=== PATIENT | female | born 1950 | race Caucasian/White ===

== ENCOUNTER 2018-07-14 13:00 | Emergency (ER) | payer MEDICARE, OTHER ==
[~2018-07-14] VITALS: Ht 167.6 cm; Wt 88.8 kg
[~2018-07-14 13:00] MED LIST: ALPR0.5T8 PO; BUPR150T6 PO; BUSP15TA14 PO; DULO-31 PO; HYDR25TA4 PO; LIOT25TA6 PO; LISI40TA4 PO; OMEP40CA37 PO
[2018-07-14 14:57] VITALS: BP 150/64
[2018-07-14] MEDS ORDERED: apixaban 5mg tablet PO ONE (15:25)
[2018-07-14] MEDS ORDERED: APIX5TAB3 PO (15:30)
[2018-07-14 16:00] LABS: BASOPHILS % (AUTO) 0.4 % (0-1); EOSINOPHILS # (AUTO) 0.1 X10'3 (0-0.9); EOSINOPHILS % (AUTO) 2.3 % (0-6); HEMATOCRIT 27.6 % (35.0-45.0); HEMOGLOBIN 9.4 g/dl (12.0-16.0); LYMPHOCYTES # (AUTO) 1.5 X10'3 (1.1-4.8); MEAN CORPUSCULAR HEMOGLOBIN 29.5 PG (27.0-31.0); MEAN CORPUSCULAR HGB CONC 33.9 % (33.0-36.5); MEAN CORPUSCULAR VOLUME 86.9 FL (78-98); MEAN PLATELET VOLUME 6.8 FL (7.4-10.4); MONOCYTES # (AUTO) 0.6 X10'3 (0-0.9); MONOCYTES % (AUTO) 8.8 % (2-12); NEUTROPHILS # (AUTO) 4.1 X10'3 (1.8-7.7); NEUTROPHILS % (AUTO) 64.5 % (42-75); PLATELET COUNT 424 X10'3 (140-440); RED BLOOD COUNT 3.17 X10'6 (4.20-5.60); RED CELL DISTRIBUTION WIDTH 12.8 % (11.5-14.5); WHITE BLOOD COUNT 6.3 X10'3 (4.5-11.0)
== END 2018-07-14 16:27 | disposition home or self-care (01) ==
LOC: ER 13:01
DX: I82.4Z1 Acute embolism and thrombosis of unspecified deep veins of right distal lower extremity (principal); Z91.048 Other nonmedicinal substance allergy status
CPT/HCPCS: 36415; 85025; 93971; 99285

== ENCOUNTER 2021-06-17 11:15 | Emergency (ER) | payer MEDICARE, OTHER ==
[~2021-06-17] VITALS: Ht 167.6 cm; Wt 88.1 kg
[~2021-06-17 11:15] MED LIST changes: +APIX5TAB3 PO; +BUPR-317 PO; -BUPR150T6 PO; -BUSP15TA14 PO; +BUSP15TA8 PO; +LISI40TA13 PO; -LISI40TA4 PO; +OMEP40CA21 PO; -OMEP40CA37 PO
[2021-06-17 12:34] LABS: PARTIAL THROMBOPLASTIN TIME 27 SECONDS (22-32)
[2021-06-17 12:38] LABS: ALANINE AMINOTRANSFERASE 10 U/L (12-78); ALBUMIN 3.9 G/DL (3.4-5.0); ALKALINE PHOSPHATASE 105 IU/L (46-116); ANION GAP 10 (8-16); ASPARTATE AMINO TRANSFERASE 15 U/L (10-37); BILIRUBIN,TOTAL 0.4 MG/DL (0.1-1.0); BLOOD UREA NITROGEN 25 MG/DL (7-18); BUN/CREATININE RATIO 22.1 (6.6-38.0); CALCIUM 8.9 MG/DL (8.5-10.1); CHLORIDE 106 MMOL/L (99-107); CREATININE 1.13 MG/DL (0.40-0.90); GLUCOSE 106 MG/DL (70-104); POTASSIUM 3.9 MMOL/L (3.5-5.1); SODIUM 141 MMOL/L (135-145); TOTAL CARBON DIOXIDE 25.5 MMOL/L (24-32); TOTAL PROTEIN 7.7 G/DL (6.4-8.2); TROPONIN I < 0.04 NG/ML (0.0-0.05); eGFR 48 ML/MIN
--- NOTE | 2021-06-17 12:51 | NUR ---
PT'S CAME IN TO ER AND STATES PT HAS BEEN HAVING SOME UNSPECIFIED VISUAL PROBLEMS FOR "A WHILE NOW" WITH HX OF CVA
[2021-06-17] MEDS ORDERED: iohexol 350 MG/ML 50ML vial IV ONE (14:05)
[2021-06-17] MEDS ORDERED: iohexol 350MG/ML 100ml bottle IV ONE (14:06)
[2021-06-17] MEDS ORDERED: TICA90TA2 PO (14:19)
[2021-06-17] MEDS ORDERED: ATOR-2 PO (14:19)
[2021-06-17] MEDS ORDERED: ASPI-1264 PO (14:19)
[2021-06-17] MEDS ORDERED: HYDR100T27 PO (14:19)
[2021-06-17] MEDS ORDERED: LISI20TA28 PO (14:19)
[2021-06-17] MEDS ORDERED: NAPR-1166 PO (14:19)
[2021-06-17] MEDS ORDERED: aspirin 81mg tab.chew PO ONE (14:25)
--- NOTE | 2021-06-17 15:05 | NUR ---
BACK FROM CT
[2021-06-17 15:26] VITALS: BP 208/87
--- NOTE | 2021-06-17 16:17 | NUR ---
Overheard pt calling out, entered room to pt pulling off 5-lead,and getting dressed. Pt with word salad, not making sense when asked what is wrong. Gave pt paper and pen; also unable to write connecting words.
--- NOTE | 2021-06-17 16:25 | NUR ---
CALLLED PT FOR PT TO LET HIM KNOW SHE DOESNT WANT TO BE HERE. STATED HE WILL COME SOON HE CAN. DR HOLDER NOTIFIED AND SPOKE WITH PT. PT VERBALIZED UNDERSTANDING.
[2021-06-17] MEDS ORDERED: potassium Cl 20 mEq SR tablet PO PRN ×2 (16:30)
[2021-06-17] MEDS ORDERED: normal saline 1000ml 1,000 ML IV SCH (16:30)
[2021-06-17] MEDS ORDERED: bisacodyl 10mg suppository rectal RC PRN (16:30)
[2021-06-17] MEDS ORDERED: potassium Cl 40MEQ/1/2NS 520ml 520 ML IV PRN ×2 (16:30)
[2021-06-17] MEDS ORDERED: mag hydrox/Alum hydrox/simeth 30ml oral suspension PO PRN (16:30)
[2021-06-17] MEDS ORDERED: ondansetron/PF 4mg/2ml inj IV PRN (16:30)
[2021-06-17] MEDS ORDERED: magnesium 4gm in 100ml NS 100 ML IV PRN (16:30)
[2021-06-17] MEDS ORDERED: magnesium Cl slow-release 64mg tablet PO PRN (16:30)
[2021-06-17] MEDS ORDERED: morphine 2 MG/ML inj. syringe IV PRN ×2 (16:30)
[2021-06-17] MEDS ORDERED: magnesium hydroxide 30ml (MOM) UD suspension PO PRN (16:30)
[2021-06-17] MEDS ORDERED: HYDROcodone/acetaminophen 5mg/325mg tablet PO PRN (16:30)
[2021-06-17] MEDS ORDERED: diphenhydrAMINE 25mg capsule PO PRN (16:30)
[2021-06-17] MEDS ORDERED: magnesium 2GM in 50ml NS 50 ML IV PRN (16:30)
[2021-06-17] MEDS ORDERED: acetaminophen 325mg tablet PO PRN ×2 (16:30)
[2021-06-17] MEDS ORDERED: acetaminophen 650mg rectal suppository RC PRN (16:30)
[2021-06-17] MEDS ORDERED: HYDROcodone/acetaminophen 10/325mg tab PO PRN (16:30)
[2021-06-17 16:56] LABS: CHOL/HDL RATIO 4.5 (0.00-4.99); CHOLESTEROL 281 MG/DL (0-200); HDL CHOLESTEROL 62 MG/DL (35-60); LDL CHOLESTEROL 161 MG/DL (50-100); TRIGLYCERIDES 275 MG/DL (20-135)
[2021-06-17 16:58] LABS: HEMOGLOBIN A1C 6.2 % (4.5-6.2)
--- NOTE | 2021-06-17 17:55 | NUR ---
PAGE SENT TO HOSPITALIST ABOUT PT WANTING TO LEAVE AMA.
--- NOTE | 2021-06-17 18:26 | NUR ---
PT DEMANDED TO LEAVE MULTIPLE TIMES. CHARGE NURSE SPOKE WITH PT. PT AGREED TO SIT AND EAT DINNER. PT THEN CAME OUT AND WAS OBSERVED WALKING OUT. WAS ABLE TO HAVE IV REMOVED. CALLED AND STATED WILL BE HERE IN A MIN. HE WAS 1 MILE AWAY. PT WALKED WITH STEADY GAIT TO BATHROOM NO DISTRESS NOTED.
[2021-06-17] MEDS ORDERED: K and/or MAG REPLACEMENT MC SCH (20:00)
[2021-06-17] MEDS ORDERED: ticagrelor 90mg tablet PO SCH (20:00)
[2021-06-17] MEDS ORDERED: heparin, porcine 5000 units/ml vial SQ SCH (20:00)
[2021-06-17] MEDS ORDERED: docusate sod 100mg capsule PO SCH (20:00)
[2021-06-17] MEDS ORDERED: hydrALAZINE 25 MG tablet PO SCH (21:00)
[2021-06-17] MEDS ORDERED: atorvastatin 20mg tablet PO SCH (21:00)
[2021-06-18] MEDS ORDERED: aspirin 325mg tablet PO SCH (08:00)
[2021-06-18] MEDS ORDERED: lisinopril 20mg tablet PO SCH (08:00)
== END 2021-06-17 18:56 | disposition left against medical advice (07) ==
LOC: ER 11:16 → UNDOADMIN 16:36 → ED HOLD 16:36 → UNDODISIN 06-18 07:39
DX: R47.01 Aphasia (principal); Z87.01 Personal history of pneumonia (recurrent); Z86.718 Personal history of other venous thrombosis and embolism; Z86.73 Personal history of transient ischemic attack (TIA), and cerebral infarction without residual deficits; Z79.82 Long term (current) use of aspirin; Z79.899 Other long term (current) drug therapy; Z91.09 Other allergy status, other than to drugs and biological substances; Z91.048 Other nonmedicinal substance allergy status
CPT/HCPCS: 36415; 70450; 70496; 70498; 71045; 80053; 80061; 83036; 84484; 85610; 85651; 85730; 93005; 99285; Q9967; 85025; G0378

== ENCOUNTER 2021-07-18 09:40 | Emergency (ER) | payer OTHER, MEDICARE ==
[~2021-07-18] VITALS: Ht 172.7 cm; Wt 91.4 kg
[~2021-07-18 09:40] MED LIST changes: -ALPR0.5T8 PO; -APIX5TAB3 PO; +ASPI-1264 PO; +ATOR-2 PO; -BUPR-317 PO; -BUSP15TA8 PO; -DULO-31 PO; +HYDR100T27 PO; -HYDR25TA4 PO; -LIOT25TA6 PO; +LISI20TA28 PO; -LISI40TA13 PO; +NAPR-1166 PO; -OMEP40CA21 PO; +TICA90TA2 PO
[2021-07-18 09:48] VITALS: BP 172/85
== END 2021-07-18 15:20 | disposition left against medical advice (07) ==
LOC: ER 09:40
DX: R60.0 Localized edema (principal); Z53.21 Procedure and treatment not carried out due to patient leaving prior to being seen by health care provider

== ENCOUNTER 2021-08-21 17:41 | Emergency (ER) | payer OTHER, MEDICARE ==
[~2021-08-21] VITALS: Ht 170.2 cm; Wt 79.5 kg
--- NOTE | 2021-08-21 17:55 | NUR ---
PT HERE WITH A C/O OF FINDING A MAGOT IN THE CREASE OF HER RT HIP. PT WAS MIXING UP HER WORDS, GARBLED SPEACH, UNABLE TO DECIF WHAT SHE IS TRYING TO SAY, ANSWERING QUESTIONS INAPPROPROTATY AND UNABLE TO PROCESS WHAT SHE IS BEING ASKED. ATTEMPTED TO CALL HER , TIAN, @ [phone], PHONE LINE IS BUSY
[2021-08-21 18:05] VITALS: BP 167/73
[2021-08-21 18:23] LABS: BASOPHILS # (AUTO) 0.1 X10'3 (0-0.2); BASOPHILS % (AUTO) 0.8 % (0-1); EOSINOPHILS # (AUTO) 0.1 X10'3 (0-0.9); EOSINOPHILS % (AUTO) 0.9 % (0-6); HEMATOCRIT 37.6 % (35.0-45.0); HEMOGLOBIN 12.8 g/dl (12.0-16.0); LYMPHOCYTES # (AUTO) 1.8 X10'3 (1.1-4.8); LYMPHOCYTES % (AUTO) 24.1 % (21-51); MEAN CORPUSCULAR HEMOGLOBIN 29.1 PG (27.0-31.0); MEAN CORPUSCULAR HGB CONC 34.1 g/dL (33.0-36.5); MEAN CORPUSCULAR VOLUME 85.4 FL (78-98); MEAN PLATELET VOLUME 8.2 FL (7.4-10.4); MONOCYTES # (AUTO) 0.5 X10'3 (0-0.9); MONOCYTES % (AUTO) 7.3 % (2-12); NEUTROPHILS % (AUTO) 66.9 % (42-75); PLATELET COUNT 301 X10'3 (140-440); RED CELL DISTRIBUTION WIDTH 13.6 % (11.5-14.5); TOTAL CARBON DIOXIDE 25.7 MMOL/L (24-32); WHITE BLOOD COUNT 7.4 X10'3 (4.5-11.0)
--- NOTE | 2021-08-21 18:24 | NUR ---
Pt. C/O RLQ pain. Onset unknown due to comuniction difficulty. Pt. has aphasia S/P CVA two years prior. Per pt.'s pt. is at baseline and pt. began complaining of pain today.
[2021-08-21 18:26] LABS: PARTIAL THROMBOPLASTIN TIME 26 SECONDS (22-32)
[2021-08-21 18:48] LABS: ALANINE AMINOTRANSFERASE 15 U/L (12-78); ALBUMIN 3.6 G/DL (3.4-5.0); ALBUMIN/GLOBULIN RATIO 0.9 (1.1-1.5); ALKALINE PHOSPHATASE 96 IU/L (46-116); ANION GAP 11 (8-16); ASPARTATE AMINO TRANSFERASE 19 U/L (10-37); BILIRUBIN,TOTAL 0.2 MG/DL (0.1-1.0); BLOOD UREA NITROGEN 33 MG/DL (7-18); BUN/CREATININE RATIO 24.6 (6.6-38.0); CALCIUM 8.8 MG/DL (8.5-10.1); CHLORIDE 105 MMOL/L (99-107); CREATININE 1.34 MG/DL (0.40-0.90); GLUCOSE 131 MG/DL (70-104); POTASSIUM 3.3 MMOL/L (3.5-5.1); SODIUM 142 MMOL/L (135-145); TOTAL PROTEIN 7.6 G/DL (6.4-8.2); eGFR 39 ML/MIN
[2021-08-21 19:08] LABS: LIPASE 122 U/L (73-393)
[2021-08-21 20:24] LABS: UA COLLECTION TYPE CLN CATCH MIDSTREAM
[2021-08-21 20:25] LABS: CLARITY,URINE SLIGHTLY CLOUDY (Clear); COLOR,URINE YELLOW (Yellow); GLUCOSE, URINE NEGATIVE (Neg); KETONES,URINE 15 mg/dl (Neg); NITRITES, URINE NEGATIVE (Neg); OCCULT BLOOD,URINE NEGATIVE (Neg); PROTEIN,URINE NEGATIVE (Neg)
[2021-08-21 20:26] LABS: LEUKOCYTE ESTERASE ,URINE NEGATIVE (Neg); UROBILINOGEN,URINE 0.2 E.U/dL (0.2-1.0)
[2021-08-21 20:27] LABS: BACTERIA,URINE FEW /HPF (Neg); RBC,URINE 0-2 /HPF (0-2); SQUAMOUS EPITHELIAL CELL,UR MODERATE /LPF (FEW)
[2021-08-21 20:28] LABS: MUCUS STRANDS FEW /LPF (Neg); URINE AMPHETAMINE SCREEN NEGATIVE (Neg); URINE BARBITUATE SCREEN NEGATIVE (Neg); URINE BENZODIAZEPINES SCREEN NEGATIVE (Neg); URINE CANNABINOID SCREEN NEGATIVE (Neg); URINE COCAINE SCREEN NEGATIVE (Neg); URINE METHADONE SCREEN NEGATIVE (Neg); URINE OPIATE SCREEN NEGATIVE (Neg); URINE PHENCYCLIDINE SCREEN NEGATIVE (Neg)
--- NOTE | 2021-08-21 21:03 | NUR ---
Pt and want to leave. signed AMA form and witnessed by me and her . IV d/c'd, catheter was intact. Left the department with her .
== END 2021-08-21 21:06 | disposition left against medical advice (07) ==
LOC: ER 17:43
DX: R10.31 Right lower quadrant pain (principal); I12.9 Hypertensive chronic kidney disease with stage 1 through stage 4 chronic kidney disease, or unspecified chronic kidney disease; E11.22 Type 2 diabetes mellitus with diabetic chronic kidney disease; N18.9 Chronic kidney disease, unspecified; Z86.73 Personal history of transient ischemic attack (TIA), and cerebral infarction without residual deficits; Z86.718 Personal history of other venous thrombosis and embolism; Z79.82 Long term (current) use of aspirin; Z79.899 Other long term (current) drug therapy; Z91.048 Other nonmedicinal substance allergy status
CPT/HCPCS: 36415; 70450; 71045; 80053; 80305; 81001; 82948; 83690; 85025; 85610; 85730; 86885; 86900; 86901; 87088; 93005; 99285